=== PATIENT | male | born 1975 | race African-American/Black ===

== ENCOUNTER 2020-02-18 07:09 | Emergency (ER) | payer OTHER ==
[~2020-02-18] VITALS: Ht 162.6 cm; Wt 76.8 kg
[2020-02-18 07:11] VITALS: Ht 162.6 cm; Wt 76.8 kg
[2020-02-18 07:31] LABS: BASOPHILS 0.3 % (0-2); EOSINOPHILS 4.6 % (0-7); HEMATOCRIT 46.5 % (42.0-54.0); IMMATURE GRANULOCYTES 0.2 % (0-5); LYMPHOCYTES 40.7 % (15-50); MCH 30.6 pg (26.0-34.0); MCHC 32.3 g/dL (31.0-37.0); MCV 94.9 fL (80.0-100.0); MEAN PLATELET VOLUME 10.5 fL (7.4-10.4); MONOCYTES 9.7 % (2-11); NEUTROPHILS 44.5 % (40-80); PLATELET COUNT 253 10x3/uL (130-400); RDW 12.4 % (11.5-14.5); WBC 6.5 10x3/uL (4.8-10.8)
[2020-02-18 07:37] LABS: CALC OSMOLALITY 284 mosm/kg (275-300); CALCIUM 8.5 mg/dL (8.5-10.1); CARBON DIOXIDE 29.3 mmol/L (21.0-32.0); CHLORIDE - SERUM 105 mmol/L (98-107); CREATININE - SERUM 1.1 mg/dL (0.6-1.3); GLUCOSE 122 mg/dL (74-106); POTASSIUM - SERUM 3.8 mmol/L (3.5-5.1); SODIUM 141 mmol/L (136-145); UREA NITROGEN 21 mg/dL (7-18); eGFR NON AFRICAN AMERICAN 78 mL/min (90-120)
[2020-02-18 07:38] LABS: APTT 27.8 SECONDS (22.8-39.4); INR 1.03 (0.85-1.17); PROTIME 13.5 SECONDS (11.6-15.0)
[2020-02-18 07:44] LABS: ALBUMIN 3.8 g/dL (3.4-5.0); ALKALINE PHOSPHATASE 97 U/L (30-120); ALT (SGPT) 24 U/L (10-68); BILIRUBIN - TOTAL 0.62 mg/dL (0.2-1.3); PROTEIN - SERUM 7.8 g/dL (6.4-8.2)
[2020-02-18 09:50] VITALS: BP 152/85
== END 2020-02-18 09:52 | disposition home or self-care (01) ==
LOC: D.ER 07:09
PROVIDERS: Family Medicine
DX: N48.30 Priapism, unspecified (principal)

== ENCOUNTER 2020-02-21 06:41 | Emergency (ER) | payer OTHER ==
[~2020-02-21] VITALS: Ht 162.6 cm; Wt 67.3 kg
[2020-02-21 06:49] VITALS: Ht 162.6 cm; Wt 67.3 kg
[2020-02-21 08:18] VITALS: BP 156/93
== END 2020-02-21 08:38 | disposition home or self-care (01) ==
LOC: D.ER 06:41
DX: N48.30 Priapism, unspecified (principal)

== ENCOUNTER 2020-02-25 12:20 | Emergency (ER) | payer OTHER ==
[2020-02-25 12:29] VITALS: BP 133/76; Ht 162.6 cm
[2020-02-25 13:22] LABS: BASOPHILS 0.2 % (0-2); EOSINOPHILS 2.6 % (0-7); HEMATOCRIT 45.4 % (42.0-54.0); HEMOGLOBIN 14.3 g/dL (13.5-17.5); IMMATURE GRANULOCYTES 0.2 % (0-5); LYMPHOCYTES 31.7 % (15-50); MCH 30.5 pg (26.0-34.0); MCHC 31.5 g/dL (31.0-37.0); MCV 96.8 fL (80.0-100.0); MEAN PLATELET VOLUME 10.1 fL (7.4-10.4); MONOCYTES 5.7 % (2-11); NEUTROPHILS 59.6 % (40-80); PLATELET COUNT 207 10x3/uL (130-400); RBC 4.69 10x6/uL (4.20-6.10); RDW 12.5 % (11.5-14.5); WBC 8.5 10x3/uL (4.8-10.8)
[2020-02-25 13:30] LABS: INR 0.97 (0.85-1.17); PROTIME 12.8 SECONDS (11.6-15.0)
[2020-02-25 13:36] LABS: ANION GAP 4.1 mmol/L (8-16); CALCIUM 8.5 mg/dL (8.5-10.1); CARBON DIOXIDE 32.8 mmol/L (21.0-32.0); CREATININE - SERUM 1.2 mg/dL (0.6-1.3); POTASSIUM - SERUM 3.9 mmol/L (3.5-5.1)
[2020-02-25 13:42] LABS: ALBUMIN 3.3 g/dL (3.4-5.0); BILIRUBIN - TOTAL 0.41 mg/dL (0.2-1.3); PROTEIN - SERUM 6.2 g/dL (6.4-8.2)
== END 2020-02-25 14:05 | disposition home or self-care (01) ==
LOC: D.ER 12:20
PROVIDERS: Family Medicine
DX: N48.30 Priapism, unspecified (principal)

== ENCOUNTER 2020-02-28 09:32 | Emergency (ER) | payer OTHER ==
[~2020-02-28] VITALS: Ht 162.6 cm; Wt 71.4 kg
[2020-02-28 09:35] VITALS: Ht 162.6 cm; Wt 71.4 kg
[2020-02-28 11:34] VITALS: BP 124/82
== END 2020-02-28 11:36 | disposition home or self-care (01) ==
LOC: D.ER 09:32
DX: N48.30 Priapism, unspecified (principal)

== ENCOUNTER 2020-05-16 00:38 | Emergency (ER) | payer OTHER ==
[~2020-05-16] VITALS: Ht 162.6 cm; Wt 68.2 kg
[2020-05-16 00:41] VITALS: Ht 162.6 cm; Wt 68.2 kg
[2020-05-16 01:05] LABS: BASOPHILS 0.6 % (0-2); EOSINOPHILS 0.6 % (0-7); HEMATOCRIT 47.3 % (42.0-54.0); HEMOGLOBIN 15.5 g/dL (13.5-17.5); IMMATURE GRANULOCYTES 0.1 % (0-5); LYMPHOCYTES 21.3 % (15-50); MCH 30.3 pg (26.0-34.0); MCHC 32.8 g/dL (31.0-37.0); MCV 92.4 fL (80.0-100.0); MONOCYTES 11.6 % (2-11); NEUTROPHILS 65.8 % (40-80); PLATELET COUNT 227 10x3/uL (130-400); RBC 5.12 10x6/uL (4.20-6.10); RDW 13.3 % (11.5-14.5); WBC 6.8 10x3/uL (4.8-10.8)
[2020-05-16 01:19] LABS: ANION GAP 17.2 mmol/L (8-16); CALCIUM 9.6 mg/dL (8.5-10.1); CARBON DIOXIDE 24.5 mmol/L (21.0-32.0); CREATININE - SERUM 1.3 mg/dL (0.6-1.3); POTASSIUM - SERUM 3.7 mmol/L (3.5-5.1)
[2020-05-16 01:25] LABS: ALBUMIN 4.4 g/dL (3.4-5.0); BILIRUBIN - TOTAL 1.57 mg/dL (0.2-1.3); MAGNESIUM - SERUM 2.3 mg/dL (1.8-2.4); PROTEIN - SERUM 8.8 g/dL (6.4-8.2)
[2020-05-16 02:21] LABS: UDS - AMPHET POSITIVE QUAL (NEGATIVE); UDS - BARB NEGATIVE QUAL (NEGATIVE); UDS - BENZO NEGATIVE QUAL (NEGATIVE); UDS - COCAINE NEGATIVE QUAL (NEGATIVE); UDS - OPIATE NEGATIVE QUAL (NEGATIVE); UDS - PCP NEGATIVE QUAL (NEGATIVE); UDS - THC POSITIVE QUAL (NEGATIVE)
[2020-05-16 02:30] LABS: BILIRUBIN NEGATIVE (NEGATIVE); KETONE MODERATE mg/dL (NEGATIVE); NITRITE NEGATIVE (NEGATIVE); UROBILINOGEN NORMAL (NORMAL)
[2020-05-16 02:32] LABS: BACTERIA MODERATE /hpf (NONE SEEN); EPITHELIAL CELLS 0-5 /hpf (0-5); RED CELLS - URINE 0-5 /hpf (0-5)
[2020-05-16 07:05] VITALS: BP 125/78
== END 2020-05-16 07:09 ==
LOC: D.ER 00:38
PROVIDERS: Family Medicine
DX: F32.9 Major depressive disorder, single episode, unspecified (principal); R45.851 Suicidal ideations; T73.0XXA Starvation, initial encounter; X58.XXXA Exposure to other specified factors, initial encounter